=== PATIENT | female | born 1975 | race Caucasian/White ===

== ENCOUNTER → 2021-02-28 | Outpatient (CLI) | payer OTHER ==
[~2021-02-28] MED LIST: ASCO100018 PO; CHOL10003 PO; IRON PO; MAGNESIUM PO; MULT-658 PO; MULT-672 PO; OMEG-170 PO
[2021-02-28 12:02] LABS: BASOPHILS % (AUTO) 1 % (0-1); EOSINOPHILS % (AUTO) 2 % (1-7); LYMPHOCYTES % (AUTO) 29 % (22-44); MEAN CORPUSCULAR HGB CONC 33.8 g/dL (32.4-35.8); MEAN PLATELET VOLUME 8.5 fL (7.4-10.4); MONOCYTES % (AUTO) 6 % (2-9); NEUTROPHILS % (AUTO) 63 % (42-75); PLATELET COUNT 272 x10^3/uL (130-400); RED BLOOD COUNT 4.92 x10^6/uL (3.82-5.3); RED CELL DISTRIBUTION WIDTH 14.5 % (9.6-15.2)
[2021-02-28 12:04] LABS: MICROSCOPIC NOT IND
== END | disposition home or self-care (01) ==
LOC: STAR 11:06
PROVIDERS: ATTEND Obstetrics & Gynecology
DX: Z01.812 Encounter for preprocedural laboratory examination (principal); Z20.822 Contact with and (suspected) exposure to COVID-19; N93.9 Abnormal uterine and vaginal bleeding, unspecified; R10.2 Pelvic and perineal pain; N83.299 Other ovarian cyst, unspecified side; D64.9 Anemia, unspecified
CPT/HCPCS: 36415; 81003; 84703; 85025; 87086; U0003; U0005

== ENCOUNTER 2021-03-04 05:34 | Day surgery (SDC) | payer OTHER ==
[~2021-03-04] VITALS: Ht 177.8 cm; Wt 108.4 kg
[2021-03-04] MEDS ORDERED: CHLORHEXIDINE 15 ML UDC ONE (06:12)
[2021-03-04 06:23] LABS: HCG UR SG 1.023 (1.003-1.030)
[2021-03-04 06:26] VITALS: BP 134/92
[2021-03-04] MEDS ORDERED: CHLORHEXIDINE 15 ML UDC PO ONE (06:30)
[2021-03-04] MEDS ORDERED: LACTATED RINGERS 1,000 ML IV SCH (06:30)
[2021-03-04] MEDS ORDERED: EPINEPHRINE 1 MG/ML, 1ML ONE (06:57)
[2021-03-04] MEDS ORDERED: BUPIVACAINE/PF 0.25% ONE (06:57)
[2021-03-04] MEDS ORDERED: FENTANYL PF 250 MCG/5ML ONE (07:08)
[2021-03-04] MEDS ORDERED: MIDAZOLAM 1 MG/ML, 2ML ONE (07:08)
[2021-03-04] MEDS ORDERED: DIPHENHYDRAMINE 50 MG/ML, 1ML IVPush PRN (07:30)
[2021-03-04] MEDS ORDERED: HALOPERIDOL 5 MG/ML IV PRN (07:30)
[2021-03-04] MEDS ORDERED: LABETALOL 5MG/ML, 20ML IV PRN (07:30)
[2021-03-04] MEDS ORDERED: ACETAMINOPHEN 325 MG TABLET PO PRN (07:30)
[2021-03-04] MEDS ORDERED: HYDROmorphone 1 MG/ML, 1ML INJ IVPush PRN (07:30)
[2021-03-04] MEDS ORDERED: MEPERIDINE/PF 25MG/0.5ML IVPush PRN (07:30)
[2021-03-04] MEDS ORDERED: hydrALAzine 20 MG/ML, 1ML IV PRN (07:30)
[2021-03-04] MEDS ORDERED: PROMETHAZINE 25 MG/ML, 1ML IVPush PRN (07:30)
[2021-03-04] MEDS ORDERED: FENTANYL PF 100 MCG/2ML ONE ×2 (08:29→09:57)
[2021-03-04] MEDS ORDERED: ROCURONIUM 10MG/ML,5ML ONE (09:09)
[2021-03-04] MEDS ORDERED: DEXAMETHASONE 4 MG/ML, 1ML ONE (09:09)
[2021-03-04] MEDS ORDERED: CEFAZOLIN 1,000 MG ONE (09:09)
[2021-03-04] MEDS ORDERED: GLYCOPYRROLATE 0.2MG/1ML, 5ML ONE (09:09)
[2021-03-04] MEDS ORDERED: NEOSTIGMINE 1 MG/ML, 10ML ONE (09:09)
[2021-03-04] MEDS ORDERED: PROPOFOL 10 MG/ML, 20ML ONE (09:09)
[2021-03-04] MEDS ORDERED: ONDANSETRON 2MG/ML, 2ML ONE (09:09)
[2021-03-04] MEDS ORDERED: SUCCINYLCHOLINE 20 MG/ML, 10ML ONE (09:09)
[2021-03-04] MEDS ORDERED: FLUORESCEIN SODIUM 500 MG/5 ML ONE (09:25)
[2021-03-04] MEDS ORDERED: KETOROLAC 30 MG/1 ML ONE (09:42)
[2021-03-04] MEDS ORDERED: OXYC1TAB14 PO (09:56)
[2021-03-04] MEDS ORDERED: MEPERIDINE/PF 25MG/ML,1ML ONE (09:57)
[2021-03-04] MEDS ORDERED: IBUP-1222 PO (10:01)
[2021-03-04] MEDS ORDERED: DOCU-131 PO (10:01)
[2021-03-04] MEDS: FENTANYL PF 100 MCG/2ML IV PRN ×3 (10:39→11:56)
[2021-03-04] MEDS ORDERED: OXYcodone 5 MG/5 ML ORAL.SOL UDC ONE (10:47)
[2021-03-04] MEDS ORDERED: ACETAMINOPHEN 650 MG/20.3 ML UDC ONE (10:47)
[2021-03-04] MEDS: OXYcodone 5 MG/5 ML ORAL.SOL UDC PO PRN ×2 (10:49→13:46)
== END 2021-03-04 13:53 | disposition home or self-care (01) ==
LOC: OUT 05:34
PROVIDERS: ATTEND Obstetrics & Gynecology
DX: N93.9 Abnormal uterine and vaginal bleeding, unspecified (principal); N88.8 Other specified noninflammatory disorders of cervix uteri; N72 Inflammatory disease of cervix uteri; D50.9 Iron deficiency anemia, unspecified; Z79.899 Other long term (current) drug therapy
CPT/HCPCS: 58554; 81025; 88307; J0171; J0690; J1100; J1885; J2175; J2250; J2405; J2704; J2710; J3010; J7120; J0330

== ENCOUNTER 2021-03-05 23:53 | Inpatient (IN) | payer OTHER ==
[~2021-03-05] VITALS: Ht 177.8 cm; Wt 116.7 kg
[~2021-03-05 23:53] MED LIST changes: +DOCU-131 PO; +IBUP-1222 PO; +OXYC1TAB14 PO
[2021-03-06] MEDS ORDERED: ONDANSETRON 2MG/ML, 2ML IVPush ONE (00:30)
[2021-03-06] MEDS ORDERED: ONDANSETRON 2MG/ML, 2ML ONE ×3 (00:30→22:44)
[2021-03-06] MEDS ORDERED: SODIUM CHLORIDE 0.9% 1,000ML IVBOLUS ONE ×2 (00:30→01:00)
[2021-03-06] MEDS ORDERED: MORPHINE SULFATE 4 MG/ML, 1ML ONE ×6 (00:30→09:58)
[2021-03-06] MEDS ORDERED: SODIUM CHLORIDE FLUSH 10ML SYR IVF ONE (00:30)
[2021-03-06 00:34] LABS: BASOPHILS % (AUTO) 0 % (0-1); EOSINOPHILS % (AUTO) 0 % (1-7); LYMPHOCYTES % (AUTO) 7 % (22-44); MEAN CORPUSCULAR HGB CONC 34.1 g/dL (32.4-35.8); MEAN PLATELET VOLUME 8.3 fL (7.4-10.4); MONOCYTES % (AUTO) 4 % (2-9); NEUTROPHILS % (AUTO) 88 % (42-75); PLATELET COUNT 275 x10^3/uL (130-400); RED BLOOD COUNT 4.83 x10^6/uL (3.82-5.3); RED CELL DISTRIBUTION WIDTH 14.2 % (9.6-15.2)
[2021-03-06] MEDS: MORPHINE SULFATE 4 MG/ML, 1ML IVPush PRN ×4 (00:41→07:54)
[2021-03-06 00:46] LABS: ANION GAP 7 mmol/L (5-15); CALCIUM 8.7 mg/dL (8.5-10.1); CHLORIDE 106 mmol/L (98-107); CREATININE 1.97 mg/dL (0.55-1.02)
[2021-03-06 00:47] LABS: ALANINE AMINOTRANSFERASE 21 U/L (12-78); ALBUMIN 3.6 g/dL (3.4-5.0)
[2021-03-06 00:49] LABS: ALKALINE PHOSPHATASE 57 U/L (45-117); BILIRUBIN,TOTAL 0.6 mg/dL (0.2-1.0); TOTAL PROTEIN 7.9 g/dL (6.4-8.2)
--- NOTE | 2021-03-06 01:32 | NUR ---
bladder scan 30 ml
[2021-03-06] MEDS ORDERED: MORPHINE SULFATE 4 MG/ML, 1ML IVPush PRN (03:30)
[2021-03-06] MEDS ORDERED: PINK LADY ENEMA 490 ML BOTTLE PR ONE (03:30)
[2021-03-06] MEDS ORDERED: PROMETHAZINE 25 MG/ML, 1ML ONE (03:38)
[2021-03-06] MEDS ORDERED: PROMETHAZINE 25 MG/ML, 1ML IM ONE (04:00)
[2021-03-06 04:09] LABS: MICROSCOPIC INDICATED
[2021-03-06] MEDS ORDERED: CEFTRIAXONE 1 GM in DEXTROSE 5% 50 ML IVPB ONE (05:00)
--- NOTE | 2021-03-06 07:39 | NUR ---
PT MEDICATED PER EMAR FOR PAIN 05/22. 92% RA, PLACED ON 2L NC FOR SAFETY.
--- NOTE | 2021-03-06 07:40 | NUR ---
CALLED ADMITTING FLOOR TO GIVE REPORT. ASSIGNED RN NOT AVAILABLE, WILL CALL ED BACK TO RECEIVE REPORT.
--- NOTE | 2021-03-06 07:54 | NUR ---
PT STILL HAS C/O 9/10 PAIN. PT MEDICATED W/ 2ND DOSE PER EMAR.
--- NOTE | 2021-03-06 08:18 | NUR ---
REPORT GIVEN TO BEN BOYD
[2021-03-06 08:50] VITALS: BP 130/89
[2021-03-06] MEDS ORDERED: morphine SULFATE 10 MG/ML, 1ML IVPush ONE (10:00)
[2021-03-06] MEDS: ONDANSETRON 2MG/ML, 2ML IVPush PRN (10:12)
[2021-03-06] MEDS ORDERED: VANCOMYCIN PER PHARMACY MC PRN (11:30)
[2021-03-06] MEDS ORDERED: hydrALAzine 20 MG/ML, 1ML IVPush PRN (11:30)
[2021-03-06] MEDS ORDERED: ONDANSETRON 2MG/ML, 2ML IVPush PRN (11:30)
[2021-03-06] MEDS ORDERED: VANCOMYCIN 2,500 MG in SODIUM CHLORIDE 0.9% 500 ML IV ONE (11:30)
[2021-03-06] MEDS ORDERED: BISACODYL 10 MG SUPP PR PRN (11:30)
[2021-03-06] MEDS ORDERED: AMPICILLIN/SULBACTAM 3 GM in SODIUM CHLORIDE 0.9% 100 ML IV SCH (11:30)
[2021-03-06] MEDS ORDERED: ONDANSETRON ODT 4 MG PO PRN (11:30)
[2021-03-06] MEDS ORDERED: PHARMACOKINETIC CONSULTATION MC ONE (11:30)
[2021-03-06] MEDS ORDERED: LORazepam 1MG TABLET PO PRN (11:30)
[2021-03-06] MEDS ORDERED: PHARMACOKINETIC MONITORING MC PRN (11:30)
[2021-03-06] MEDS: morphine SULFATE 10 MG/ML, 1ML IVPush PRN (12:29)
[2021-03-06 12:30] LABS: BASOPHILS % (AUTO) 0 % (0-1); EOSINOPHILS % (AUTO) 0 % (1-7); LYMPHOCYTES % (AUTO) 11 % (22-44); MEAN CORPUSCULAR HEMOGLOBIN 30.3 pg (27.0-34.8); MEAN CORPUSCULAR HGB CONC 33.7 g/dL (32.4-35.8); MEAN PLATELET VOLUME 8.1 fL (7.4-10.4); MONOCYTES % (AUTO) 6 % (2-9); NEUTROPHILS % (AUTO) 83 % (42-75); PLATELET COUNT 312 x10^3/uL (130-400); RED BLOOD COUNT 4.68 x10^6/uL (3.82-5.3); RED CELL DISTRIBUTION WIDTH 14.6 % (9.6-15.2)
[2021-03-06] MEDS: PANTOPRAZOLE 40 MG IV IVPush SCH (12:30)
[2021-03-06 12:32] LABS: HCT (SEDRATE) 42.2 % (34.6-47.8)
[2021-03-06] MEDS: SENNA/DOCUSATE TABLET PO SCH ×2 (12:37→21:00)
[2021-03-06] MEDS: POLYETHYLENE GLYCOL 17 GM PACKET PO SCH ×3 (12:37→21:00)
[2021-03-06 12:40] LABS: INTERNATIONAL NORMALIZED RATIO 1.03 (0.93-1.1)
[2021-03-06 12:42] LABS: ALANINE AMINOTRANSFERASE 15 U/L (12-78); ALBUMIN 3.4 g/dL (3.4-5.0); CALCIUM 8.4 mg/dL (8.5-10.1); CHLORIDE 110 mmol/L (98-107); CREATININE 2.99 mg/dL (0.55-1.02)
[2021-03-06 12:44] LABS: ALKALINE PHOSPHATASE 54 U/L (45-117); BILIRUBIN,TOTAL 0.5 mg/dL (0.2-1.0); TOTAL PROTEIN 7.4 g/dL (6.4-8.2)
[2021-03-06 12:52] LABS: ANION GAP 6 mmol/L (5-15)
[2021-03-06 13:28] VITALS: BP 119/85
[2021-03-06] MEDS: POTASSIUM CHLORIDE 20 MEQ, MAGNESIUM SULFATE 2 GM, THIAMINE 200 MG, MVI ADULT 10 ML, FO... IV SCH ×2 (15:01→16:54)
[2021-03-06 19:46] VITALS: BP 121/83
[2021-03-06] MEDS ORDERED: OMNIPAQUE 350 MG/ML, 50 ML BOTTLE ONE (19:55)
[2021-03-06] MEDS ORDERED: FENTANYL PF 250 MCG/5ML ONE (19:55)
[2021-03-06] MEDS ORDERED: MIDAZOLAM 1 MG/ML, 2ML ONE (19:55)
[2021-03-06] MEDS ORDERED: DIPHENHYDRAMINE 50 MG/ML, 1ML IVPush PRN (20:00)
[2021-03-06] MEDS ORDERED: LABETALOL 5MG/ML, 20ML IV PRN (20:00)
[2021-03-06] MEDS ORDERED: HALOPERIDOL 5 MG/ML IV PRN (20:00)
[2021-03-06] MEDS ORDERED: hydrALAzine 20 MG/ML, 1ML IV PRN (20:00)
[2021-03-06] MEDS ORDERED: MEPERIDINE/PF 25MG/0.5ML IVPush PRN (20:00)
[2021-03-06] MEDS ORDERED: HYDROmorphone 1 MG/ML, 1ML INJ IVPush PRN (20:00)
[2021-03-06] MEDS ORDERED: PROMETHAZINE 25 MG/ML, 1ML IVPush PRN (20:00)
[2021-03-06] MEDS ORDERED: MELATONIN 5 MG TABLET PO PRN (21:00)
[2021-03-06] MEDS ORDERED: HYDROmorphone 1 MG/ML, 1ML INJ ONE ×2 (21:23→21:37)
[2021-03-06] MEDS ORDERED: BUPIVACAINE 0.25% ONE (22:04)
[2021-03-06] MEDS ORDERED: EPINEPHRINE 1 MG/ML, 1ML ONE (22:04)
[2021-03-06] MEDS: ACETAMINOPHEN 325 MG TABLET PO PRN ×2 (22:34→23:45)
[2021-03-06] MEDS: OXYcodone 5 MG/5 ML ORAL.SOL UDC PO PRN ×2 (22:34→23:45)
[2021-03-06] MEDS ORDERED: GLYCOPYRROLATE 0.2MG/1ML, 5ML ONE (22:44)
[2021-03-06] MEDS ORDERED: ROCURONIUM 10MG/ML,5ML ONE (22:44)
[2021-03-06] MEDS ORDERED: CEFAZOLIN 1,000 MG ONE (22:44)
[2021-03-06] MEDS ORDERED: PROPOFOL 10 MG/ML, 20ML ONE (22:44)
[2021-03-06] MEDS ORDERED: SUCCINYLCHOLINE 20 MG/ML, 10ML ONE (22:44)
[2021-03-06] MEDS ORDERED: NEOSTIGMINE 1 MG/ML, 10ML ONE (22:44)
[2021-03-06] MEDS ORDERED: FENTANYL PF 100 MCG/2ML ONE ×2 (22:51→23:26)
[2021-03-06] MEDS ORDERED: OXYcodone 5 MG/5 ML ORAL.SOL UDC ONE (23:26)
[2021-03-06] MEDS: FENTANYL PF 100 MCG/2ML IV PRN ×2 (23:29→23:43)
[2021-03-06] MEDS ORDERED: ACETAMINOPHEN 650 MG/20.3 ML UDC ONE (23:30)
[2021-03-07 00:16] VITALS: BP 105/69
[2021-03-07] MEDS: MORPHINE SULFATE 4 MG/ML, 1ML IVPush PRN (02:44)
[2021-03-07] MEDS: AMPICILLIN/SULBACTAM 3 GM in SODIUM CHLORIDE 0.9% 100 ML IV SCH ×2 (02:50→16:52)
[2021-03-07 04:21] VITALS: BP 105/71
[2021-03-07 05:49] LABS: BASOPHILS % (AUTO) 1 % (0-1); EOSINOPHILS % (AUTO) 1 % (1-7); LYMPHOCYTES % (AUTO) 14 % (22-44); MEAN CORPUSCULAR HEMOGLOBIN 30.2 pg (27.0-34.8); MEAN CORPUSCULAR HGB CONC 33.5 g/dL (32.4-35.8); MEAN PLATELET VOLUME 8.2 fL (7.4-10.4); MONOCYTES % (AUTO) 7 % (2-9); NEUTROPHILS % (AUTO) 78 % (42-75); PLATELET COUNT 253 x10^3/uL (130-400); RED CELL DISTRIBUTION WIDTH 13.9 % (9.6-15.2)
[2021-03-07 06:05] LABS: CHLORIDE 110 mmol/L (98-107)
[2021-03-07 06:20] LABS: ALANINE AMINOTRANSFERASE 11 U/L (12-78); ALBUMIN 2.4 g/dL (3.4-5.0); ALKALINE PHOSPHATASE 42 U/L (45-117); ANION GAP 3 mmol/L (5-15); BILIRUBIN,TOTAL 0.6 mg/dL (0.2-1.0); CALCIUM 7.4 mg/dL (8.5-10.1); CREATININE 0.88 mg/dL (0.55-1.02); TOTAL PROTEIN 5.7 g/dL (6.4-8.2)
[2021-03-07 07:07] VITALS: BP 103/72
[2021-03-07] MEDS: PANTOPRAZOLE 40 MG IV IVPush SCH (08:18)
[2021-03-07] MEDS: ACETAMINOPHEN 325 MG TABLET PO PRN ×4 (08:31→23:55)
[2021-03-07] MEDS: OXYcodone IR 5MG TABLET PO PRN ×4 (08:32→20:08)
[2021-03-07] MEDS: SENNA/DOCUSATE TABLET PO SCH ×2 (08:32→20:07)
[2021-03-07] MEDS: POLYETHYLENE GLYCOL 17 GM PACKET PO SCH ×3 (08:33→20:07)
[2021-03-07] MEDS ORDERED: VANCOMYCIN 2,000 MG in SODIUM CHLORIDE 0.9% 500 ML IV SCH (13:00)
[2021-03-07 14:00] VITALS: BP 121/61
[2021-03-07] MEDS: POTASSIUM CHLORIDE 20 MEQ, MAGNESIUM SULFATE 2 GM, THIAMINE 200 MG, MVI ADULT 10 ML, FO... IV SCH ×2 (16:20→17:56)
[2021-03-07 19:36] VITALS: BP 123/84
[2021-03-07 23:33] VITALS: BP 120/79
[2021-03-07] MEDS: ONDANSETRON 2MG/ML, 2ML IVPush PRN (23:55)
[2021-03-08] VITALS: BP 120/79
[2021-03-08] MEDS: MORPHINE SULFATE 4 MG/ML, 1ML IVPush PRN ×2 (00:03→06:13)
[2021-03-08] MEDS: OXYcodone IR 5MG TABLET PO PRN (02:34)
[2021-03-08] MEDS: AMPICILLIN/SULBACTAM 3 GM in SODIUM CHLORIDE 0.9% 100 ML IV SCH ×2 (04:30→16:50)
[2021-03-08 05:22] LABS: BASOPHILS % (AUTO) 0 % (0-1); EOSINOPHILS % (AUTO) 0 % (1-7); LYMPHOCYTES % (AUTO) 7 % (22-44); MEAN CORPUSCULAR HEMOGLOBIN 29.8 pg (27.0-34.8); MEAN CORPUSCULAR HGB CONC 33.4 g/dL (32.4-35.8); MONOCYTES % (AUTO) 5 % (2-9); NEUTROPHILS % (AUTO) 87 % (42-75); PLATELET COUNT 306 x10^3/uL (130-400); RED BLOOD COUNT 4.28 x10^6/uL (3.82-5.3); RED CELL DISTRIBUTION WIDTH 13.9 % (9.6-15.2)
[2021-03-08 05:29] LABS: ANION GAP 4 mmol/L (5-15); CALCIUM 7.6 mg/dL (8.5-10.1); CHLORIDE 109 mmol/L (98-107); CREATININE 0.56 mg/dL (0.55-1.02)
[2021-03-08] MEDS: ONDANSETRON 2MG/ML, 2ML IVPush PRN ×2 (06:13→13:47)
[2021-03-08] MEDS: PANTOPRAZOLE 40MG TABLET PO SCH (06:13)
[2021-03-08 06:30] VITALS: BP 114/81
[2021-03-08] MEDS ORDERED: VANCOMYCIN 2,000 MG in SODIUM CHLORIDE 0.9% 500 ML IV SCH (07:30)
[2021-03-08] MEDS: METOCLOPRAMIDE 5 MG/ML, 2ML IVPush PRN ×3 (08:42→23:43)
[2021-03-08] MEDS: morphine SULFATE 10 MG/ML, 1ML IVPush PRN ×2 (08:43→16:50)
[2021-03-08] MEDS: POLYETHYLENE GLYCOL 17 GM PACKET PO SCH ×3 (08:44→21:57)
[2021-03-08] MEDS: SENNA/DOCUSATE TABLET PO SCH ×2 (08:44→21:57)
[2021-03-08] MEDS ORDERED: POTASSIUM PHOSPHATE 22 MEQ in SODIUM CHLORIDE 0.9% 500 ML IV ONE (10:00)
[2021-03-08 13:03] VITALS: BP 118/62
[2021-03-08] MEDS: VANCOMYCIN 2,000 MG in SODIUM CHLORIDE 0.9% 500 ML IV SCH (19:28)
[2021-03-08 19:32] VITALS: BP 115/80
[2021-03-08] MEDS: POTASSIUM CHLORIDE 20 MEQ, MAGNESIUM SULFATE 2 GM, THIAMINE 200 MG, MVI ADULT 10 ML, FO... IV SCH (21:57)
[2021-03-09 01:17] VITALS: BP 115/78
[2021-03-09] MEDS: MORPHINE SULFATE 4 MG/ML, 1ML IVPush PRN ×3 (02:42→22:20)
[2021-03-09] MEDS: AMPICILLIN/SULBACTAM 3 GM in SODIUM CHLORIDE 0.9% 100 ML IV SCH ×3 (04:26→22:00)
[2021-03-09] MEDS: PANTOPRAZOLE 40MG TABLET PO SCH (05:50)
[2021-03-09 06:06] LABS: BASOPHILS % (AUTO) 1 % (0-1); EOSINOPHILS % (AUTO) 1 % (1-7); LYMPHOCYTES % (AUTO) 14 % (22-44); MEAN CORPUSCULAR HEMOGLOBIN 30.1 pg (27.0-34.8); MEAN CORPUSCULAR HGB CONC 33.6 g/dL (32.4-35.8); MONOCYTES % (AUTO) 7 % (2-9); NEUTROPHILS % (AUTO) 78 % (42-75); PLATELET COUNT 303 x10^3/uL (130-400); RED BLOOD COUNT 3.89 x10^6/uL (3.82-5.3); RED CELL DISTRIBUTION WIDTH 13.7 % (9.6-15.2)
[2021-03-09 06:38] LABS: ALANINE AMINOTRANSFERASE 10 U/L (12-78); ANION GAP 4 mmol/L (5-15); CALCIUM 7.6 mg/dL (8.5-10.1); CHLORIDE 111 mmol/L (98-107); CREATININE 0.57 mg/dL (0.55-1.02)
[2021-03-09 06:40] LABS: ALKALINE PHOSPHATASE 49 U/L (45-117); BILIRUBIN,TOTAL 0.4 mg/dL (0.2-1.0); TOTAL PROTEIN 5.7 g/dL (6.4-8.2); VANCOMYCIN,RANDOM 13.2 mcg/mL
[2021-03-09 06:55] VITALS: BP 119/81
[2021-03-09] MEDS: METOCLOPRAMIDE 5 MG/ML, 2ML IVPush PRN (07:00)
[2021-03-09] MEDS: VANCOMYCIN 2,000 MG in SODIUM CHLORIDE 0.9% 500 ML IV SCH ×2 (07:59→18:33)
[2021-03-09] MEDS: SENNA/DOCUSATE TABLET PO SCH (08:04)
[2021-03-09] MEDS: POLYETHYLENE GLYCOL 17 GM PACKET PO SCH ×3 (08:04→21:00)
[2021-03-09] MEDS ORDERED: CALCIUM CARBONATE 500 MG TAB.CHEW PO PRN (08:30)
[2021-03-09] MEDS ORDERED: SODIUM PHOSPHATE 30 MMOL in SODIUM CHLORIDE 0.9% 500 ML IV ONE (10:00)
[2021-03-09 13:20] VITALS: BP 125/84
[2021-03-09] MEDS: ONDANSETRON 2MG/ML, 2ML IVPush PRN (14:18)
[2021-03-09] MEDS ORDERED: PROMETHAZINE 25 MG/ML, 1ML IM PRN (15:00)
[2021-03-09] MEDS: METOCLOPRAMIDE 5 MG/ML, 2ML IVPush SCH ×2 (16:08→22:19)
[2021-03-09] MEDS ORDERED: SENNA/DOCUSATE TABLET PO PRN (17:00)
[2021-03-09] MEDS: LORazepam 2 MG/ML, 1ML IVPush PRN ×2 (18:00→23:14)
[2021-03-09] MEDS ORDERED: LIDOCAINE 2% VISCOUS 15 ML UDC MM PRN (18:00)
[2021-03-09 19:27] VITALS: BP 120/84
[2021-03-10 00:01] VITALS: BP 115/77
[2021-03-10] MEDS: VANCOMYCIN 2,000 MG in SODIUM CHLORIDE 0.9% 500 ML IV SCH ×3 (02:34→18:34)
[2021-03-10] MEDS: METOCLOPRAMIDE 5 MG/ML, 2ML IVPush SCH ×4 (04:04→22:11)
[2021-03-10] MEDS: MORPHINE SULFATE 4 MG/ML, 1ML IVPush PRN ×2 (04:07→10:39)
[2021-03-10] MEDS: AMPICILLIN/SULBACTAM 3 GM in SODIUM CHLORIDE 0.9% 100 ML IV SCH ×4 (05:30→22:11)
[2021-03-10 05:47] LABS: BASOPHILS % (AUTO) 1 % (0-1); EOSINOPHILS % (AUTO) 4 % (1-7); LYMPHOCYTES % (AUTO) 18 % (22-44); MEAN CORPUSCULAR HEMOGLOBIN 30.1 pg (27.0-34.8); MEAN CORPUSCULAR HGB CONC 33.9 g/dL (32.4-35.8); MEAN PLATELET VOLUME 7.8 fL (7.4-10.4); MONOCYTES % (AUTO) 7 % (2-9); NEUTROPHILS % (AUTO) 71 % (42-75); PLATELET COUNT 312 x10^3/uL (130-400); RED BLOOD COUNT 3.73 x10^6/uL (3.82-5.3)
[2021-03-10 05:55] LABS: ANION GAP 6 mmol/L (5-15); CALCIUM 7.7 mg/dL (8.5-10.1); CHLORIDE 112 mmol/L (98-107); CREATININE 0.53 mg/dL (0.55-1.02)
[2021-03-10] MEDS ORDERED: PHENOL THROAT SPRAY BOTTLE MM PRN (06:30)
[2021-03-10] MEDS: POLYETHYLENE GLYCOL 17 GM PACKET PO SCH ×3 (07:37→21:00)
[2021-03-10 07:40] VITALS: BP 125/84
[2021-03-10] MEDS: POTASSIUM CHLORIDE 20 MEQ, MAGNESIUM SULFATE 2 GM, THIAMINE 200 MG, MVI ADULT 10 ML, FO... IV SCH (08:31)
[2021-03-10] MEDS ORDERED: POTASSIUM CHLORIDE 40 MEQ in SODIUM CHLORIDE 0.9% 500 ML IV ONE (10:00)
[2021-03-10] MEDS: PANTOPRAZOLE 40 MG IV IVPush SCH (10:18)
[2021-03-10 14:34] VITALS: BP 127/90
[2021-03-10] MEDS: morphine SULFATE 10 MG/ML, 1ML IVPush PRN (17:33)
[2021-03-10 21:44] VITALS: BP 128/68
[2021-03-11] MEDS: morphine SULFATE 10 MG/ML, 1ML IVPush PRN (00:33)
[2021-03-11 02:32] LABS: BASOPHILS % (AUTO) 0 % (0-1); EOSINOPHILS % (AUTO) 3 % (1-7); LYMPHOCYTES % (AUTO) 13 % (22-44); MEAN CORPUSCULAR HEMOGLOBIN 29.7 pg (27.0-34.8); MEAN PLATELET VOLUME 7.4 fL (7.4-10.4); MONOCYTES % (AUTO) 8 % (2-9); NEUTROPHILS % (AUTO) 77 % (42-75); PLATELET COUNT 342 x10^3/uL (130-400); RED BLOOD COUNT 3.89 x10^6/uL (3.82-5.3)
[2021-03-11 02:42] LABS: ANION GAP 9 mmol/L (5-15); CALCIUM 7.7 mg/dL (8.5-10.1); CHLORIDE 110 mmol/L (98-107); CREATININE 0.48 mg/dL (0.55-1.02)
[2021-03-11 02:43] VITALS: BP 135/88
[2021-03-11] MEDS: VANCOMYCIN 2,000 MG in SODIUM CHLORIDE 0.9% 500 ML IV SCH ×3 (03:17→21:05)
[2021-03-11] MEDS: METOCLOPRAMIDE 5 MG/ML, 2ML IVPush SCH ×4 (04:04→23:32)
[2021-03-11] MEDS: AMPICILLIN/SULBACTAM 3 GM in SODIUM CHLORIDE 0.9% 100 ML IV SCH ×4 (05:58→23:33)
[2021-03-11] MEDS ORDERED: HYDROmorphone 1 MG/ML, 1ML INJ IV PRN (07:00)
[2021-03-11] MEDS: POLYETHYLENE GLYCOL 17 GM PACKET PO SCH ×3 (07:26→21:00)
[2021-03-11 07:27] VITALS: BP 127/86
[2021-03-11] MEDS: POTASSIUM CHLORIDE 20 MEQ, MAGNESIUM SULFATE 2 GM, THIAMINE 200 MG, MVI ADULT 10 ML, FO... IV SCH (09:10)
[2021-03-11] MEDS: PANTOPRAZOLE 40 MG IV IVPush SCH (09:11)
[2021-03-11] MEDS ORDERED: POTASSIUM CHLORIDE 40 MEQ in SODIUM CHLORIDE 0.9% 500 ML IV ONE (10:00)
[2021-03-11 15:45] VITALS: BP 128/85
[2021-03-11 20:18] VITALS: BP 125/89
[2021-03-12 00:59] VITALS: BP 121/79
[2021-03-12] MEDS: VANCOMYCIN 2,000 MG in SODIUM CHLORIDE 0.9% 500 ML IV SCH ×2 (05:14→13:41)
[2021-03-12] MEDS: METOCLOPRAMIDE 5 MG/ML, 2ML IVPush SCH ×3 (05:22→17:30)
[2021-03-12 05:50] LABS: BASOPHILS % (AUTO) 1 % (0-1); EOSINOPHILS % (AUTO) 3 % (1-7); LYMPHOCYTES % (AUTO) 15 % (22-44); MEAN CORPUSCULAR HEMOGLOBIN 29.4 pg (27.0-34.8); MEAN CORPUSCULAR HGB CONC 33.7 g/dL (32.4-35.8); MEAN PLATELET VOLUME 7.6 fL (7.4-10.4); MONOCYTES % (AUTO) 8 % (2-9); NEUTROPHILS % (AUTO) 73 % (42-75); PLATELET COUNT 349 x10^3/uL (130-400); RED BLOOD COUNT 3.93 x10^6/uL (3.82-5.3)
[2021-03-12 06:01] LABS: ANION GAP 6 mmol/L (5-15); CALCIUM 7.9 mg/dL (8.5-10.1); CHLORIDE 110 mmol/L (98-107); CREATININE 0.58 mg/dL (0.55-1.02)
[2021-03-12] MEDS: POLYETHYLENE GLYCOL 17 GM PACKET PO SCH ×2 (07:56→16:24)
[2021-03-12] MEDS: AMPICILLIN/SULBACTAM 3 GM in SODIUM CHLORIDE 0.9% 100 ML IV SCH ×2 (07:57→16:25)
[2021-03-12] MEDS: PANTOPRAZOLE 40 MG IV IVPush SCH (07:58)
[2021-03-12 08:00] VITALS: BP 124/82
[2021-03-12] MEDS ORDERED: POTASSIUM CHLORIDE 20 MEQ TAB.ER.PRT PO ONE (12:30)
[2021-03-12] MEDS ORDERED: SACC250C4 PO (14:26)
[2021-03-12] MEDS ORDERED: AMOX1TAB64 PO (14:26)
[2021-03-12] MEDS ORDERED: POLY17PO5 PO (14:26)
[2021-03-12] MEDS ORDERED: ONDA4TAB13 PO (14:26)
[2021-03-12] MEDS ORDERED: HYDR-3241 PO (14:29)
[2021-03-12 14:30] VITALS: BP 122/82
[2021-03-12] MEDS ORDERED: METO5TAB57 PO (14:35)
[2021-03-12] MEDS: POTASSIUM CHLORIDE 20 MEQ, MAGNESIUM SULFATE 2 GM, THIAMINE 200 MG, MVI ADULT 10 ML, FO... IV SCH (15:06)
== END 2021-03-12 18:42 | disposition home or self-care (01) | DRG 653 ==
LOC: ED 03-06 03:01 → EDIP 03-06 06:03 → 4NE 03-06 08:45
PROVIDERS: ADMIT Internal Medicine; ATTEND Internal Medicine
PROC: 0TBB0ZZ Excision of Bladder, Open Approach (ICD-10-PCS; 2021-03-06)
PROC: 0U900ZZ Drainage of Right Ovary, Open Approach (ICD-10-PCS; 2021-03-06)
PROC: BT141ZZ Fluoroscopy of Kidneys, Ureters and Bladder using Low Osmolar Contrast (ICD-10-PCS; 2021-03-06)
PROC: 0TJB8ZZ Inspection of Bladder, Via Natural or Artificial Opening Endoscopic (ICD-10-PCS; principal; 2021-03-06 19:30)
PROC: 0D967ZZ Drainage of Stomach, Via Natural or Artificial Opening (ICD-10-PCS; 2021-03-09)
DX: N32.89 Other specified disorders of bladder (principal); K65.9 Peritonitis, unspecified; K56.7 Ileus, unspecified; N17.9 Acute kidney failure, unspecified; N39.0 Urinary tract infection, site not specified; R18.8 Other ascites; K56.609 Unspecified intestinal obstruction, unspecified as to partial versus complete obstruction; Z20.822 Contact with and (suspected) exposure to COVID-19; E03.9 Hypothyroidism, unspecified; N83.291 Other ovarian cyst, right side; Z83.3 Family history of diabetes mellitus; Z90.710 Acquired absence of both cervix and uterus
CPT/HCPCS: 36415; 74018; 74021; 74420; 74430; 96361; 96374; 99285; J7042; 71045; 74176; 76856; 80048; 80053; 80202; 81001; 82570; 83605; 83690; 83735; 84100; 85025; 85610; 85651; 87040; 87086; 87635; 88305; C1729; G0378; J0171; J0295; J0690; J0696; J1170; J2250; J2405; J2550; J2704; J2710; J3010; J3370; J3411; J3475; J3480; Q9967; C1758; C1769; C9113; J0330; J2060; J2270; J2765; J7030; J7040